=== PATIENT | female | born 1935 | race African-American/Black ===

== ENCOUNTER 2016-11-01 09:49 | Outpatient (CLI) | payer MEDICARE, BC ==
[2016-11-01 11:12] LABS: ALT (SGPT) 12 U/L (0-55); AST (SGOT) 13 U/L (5-34); Alkaline Phosphatase 66 U/L (40-150); Anion Gap 14 mmol/L (10-20); BUN (Urea Nitrogen) 31 mg/dL (9.8-20.1); Bilirubin, Total 0.2 mg/dL (0.2-1.2); Calc. Creatinine Clearance 0 mL/min (70-130); Calcium 8.7 mg/dL (7.8-10.44); Carbon Dioxide 23 mmol/L (23-31); Chloride 110 mmol/L (98-107); Cholesterol 164 mg/dL (< 200 Desired); Estimated GFR-MDRD 36; Globulin 3.2 g/dL (2.4-3.5); Glucose 154 mg/dL (83-110); HDL Cholesterol 41 mg/dL (>60 Neg Risk); LDL Cholesterol, Calculated 87 mg/dL; Potassium 4.8 mmol/L (3.5-5.1); Protein, Total 7.2 g/dL (5.8-8.1); Sodium 142 mmol/L (136-145); Triglycerides 181 mg/dL (Less than 150)
[2016-11-01 11:41] LABS: #Basophils 0.1 thou/uL (0.0-0.2); #Eosinphils 0.2 thou/uL (0.0-0.7); #Lymphocytes 2.6 thou/uL (1.20-3.40); #Monocytes 0.7 thou/uL (0.11-0.59); #Neutrophils 4.6 thou/uL (1.40-6.50); %Basophils 0.7 % (0.0-1.0); %Eosinophils 2.5 % (0.0-10.0); %Lymphocytes 31.9 % (21.0-51.0); %Monocytes 8.1 % (0.0-10.0); %Neutrophils 56.9 % (42.0-75.0); Hemoglobin 11.9 g/dL (12.0-16.0); Mean Corpuscular Hemoglobin 28.8 pg (27.0-31.0); Mean Platelet Volume 8.2 fL (7.4-10.4); Platelet Count 245 thou/uL (130-400); RBC Distribution Width 15.5 % (11.5-14.5); Red Blood Cell (RBC) Count 4.15 mill/uL (4.20-5.40); White Blood Cell (WBC) Count 8.1 thou/uL (4.8-10.8)
[2016-11-01 14:04] LABS: Hemoglobin A1c 7.6 % (4.0-6.0)
[2016-11-01 14:08] LABS: Free T4 (Free Thyroxine) 1.02 ng/dL (0.70-1.48); Thyroid Stimulating Hormone 0.6912 uIU/mL (0.35-4.94)
== END 2016-11-01 09:50 | disposition home or self-care (01) ==
LOC: HPCALD 09:49
PROVIDERS: ATTEND Family Medicine
DX: E78.5 Hyperlipidemia, unspecified (principal); E11.9 Type 2 diabetes mellitus without complications; I10 Essential (primary) hypertension; E03.9 Hypothyroidism, unspecified
CPT/HCPCS: 36415; 80053; 80061; 83036; 84439; 84443; 85025

== ENCOUNTER 2017-02-06 09:44 | Outpatient (CLI) | payer MEDICARE, BC ==
[2017-02-06 10:43] LABS: #Basophils 0.1 thou/uL (0.0-0.2); #Eosinphils 0.2 thou/uL (0.0-0.7); #Monocytes 0.5 thou/uL (0.11-0.59); #Neutrophils 5.3 thou/uL (1.40-6.50); %Basophils 0.8 % (0.0-1.0); %Eosinophils 2.3 % (0.0-10.0); %Lymphocytes 32.6 % (21.0-51.0); %Monocytes 5.4 % (0.0-10.0); Hemoglobin 11.4 g/dL (12.0-16.0); Mean Corpuscular HGB CONC 32.2 g/dL (32.0-36.0); Mean Corpuscular Volume 90.1 fl (81.0-99.0); Mean Platelet Volume 6.8 fL (7.4-10.4); Platelet Count 296 thou/uL (130-400); RBC Distribution Width 14.8 % (11.5-14.5); Red Blood Cell (RBC) Count 3.93 mill/uL (4.20-5.40); White Blood Cell (WBC) Count 9.1 thou/uL (4.8-10.8)
[2017-02-06 11:07] LABS: Hemoglobin A1c 8.1 % (4.0-6.0)
[2017-02-06 11:08] LABS: ALT (SGPT) 9 U/L (8-55); AST (SGOT) 12 U/L (5-34); Albumin 3.8 g/dL (3.4-4.8); Alkaline Phosphatase 76 U/L (40-150); Anion Gap 15 mmol/L (10-20); BUN (Urea Nitrogen) 24 mg/dL (9.8-20.1); Bilirubin, Total 0.3 mg/dL (0.2-1.2); Calc. Creatinine Clearance 0 mL/min (70-130); Calcium 8.6 mg/dL (7.8-10.44); Carbon Dioxide 21 mmol/L (23-31); Chloride 110 mmol/L (98-107); Estimated GFR-MDRD 45; Globulin 3.5 g/dL (2.4-3.5); Glucose 148 mg/dL (83-110); Potassium 4.9 mmol/L (3.5-5.1); Protein, Total 7.3 g/dL (6.0-8.3); Sodium 141 mmol/L (136-145)
[2017-02-06 11:27] LABS: Free T4 (Free Thyroxine) 0.97 ng/dL (0.70-1.48); Thyroid Stimulating Hormone 2.1437 uIU/mL (0.35-4.94)
== END 2017-02-06 09:45 ==
LOC: HPCALD 09:44
PROVIDERS: ATTEND Family Medicine
DX: E03.9 Hypothyroidism, unspecified (principal); E11.9 Type 2 diabetes mellitus without complications; I10 Essential (primary) hypertension
CPT/HCPCS: 36415; 80053; 83036; 84439; 84443; 85025

== ENCOUNTER 2017-04-04 09:36 | Outpatient (CLI) | payer MEDICARE, BC ==
--- NOTE | 2017-04-04 19:27 | RAD ---
RIGHT SHOULDER THREE VIEWS: 04/04/17 Comparison is made with the 01/14/16 study. No fracture, dislocation, or soft tissue calcification was seen. There is some bony spurring of the AC joint. It is not widened. The visible adjacent lung is clear. IMPRESSION: No acute findings. POS: HOME
== END 2017-04-04 09:37 | disposition home or self-care (01) ==
LOC: BURRAD 09:36
PROVIDERS: ATTEND Family Medicine
DX: M25.511 Pain in right shoulder (principal)